=== PATIENT | male | born 1990 | race African-American/Black ===

== ENCOUNTER 2017-11-01 10:09 | Emergency (ER) | payer OTHER, SELFPAY ==
[2017-11-01] MEDS ORDERED: Acetaminophen 500 MG TAB ONE (10:52)
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
[2017-11-01] MEDS ORDERED: Morphine 2 MG/ML SYRINGE ONE (11:58)
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
--- NOTE | 2017-11-01 12:18 | RAD ---
THREE VIEWS OF THE LEFT HAND: COMPARISON: 11/01/17 at 10:20 a.m. HISTORY: Reduction of thumb dislocation. FINDINGS: Three views left hand show reduction of the previously seen dislocation of the thumb at the interphal angeal joint. No fracture fragment is seen. IMPRESSION: Reduction of left thumb interphalangeal dislocation. POS: [facility]
[2017-11-01] MEDS ORDERED: ISOVUE-370 76%-LOCM 1 ML ONE (16:54)
== END 2017-11-01 13:10 | disposition home or self-care (01) ==
LOC: ERS 10:09
DX: S63.105A Unspecified dislocation of left thumb, initial encounter (principal); S00.83XA Contusion of other part of head, initial encounter; S39.91XA Unspecified injury of abdomen, initial encounter; S29.9XXA Unspecified injury of thorax, initial encounter; H57.8 Other specified disorders of eye and adnexa; F31.9 Bipolar disorder, unspecified; V48.5XXA Car driver injured in noncollision transport accident in traffic accident, initial encounter
CPT/HCPCS: 26770; 70450; 71045; 71260; 72125; 74177; 96374; G0390; J2270